=== PATIENT | female | born 1995 | race Caucasian/White ===

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

== ENCOUNTER 2017-05-31 19:30 | Emergency (ER) | payer OTHER ==
[~2017-05-31] VITALS: Ht 160 cm; Wt 88.8 kg
[~2017-05-31 19:30] MED LIST changes: +MOTRIN800 MG PO
[2017-05-31] MEDS ORDERED: FIORICET PO (22:12)
[2017-05-31 22:26] VITALS: BP 133/79
== END 2017-05-31 22:27 | disposition home or self-care (01) | DRG 103 ==
LOC: ED 19:30
DX: G43.909 Migraine, unspecified, not intractable, without status migrainosus (principal); I10 Essential (primary) hypertension

== ENCOUNTER 2017-06-27 10:35 | Emergency (ER) | payer SELFPAY ==
[~2017-06-27] VITALS: Ht 160 cm; Wt 84.0 kg
[~2017-06-27 10:35] MED LIST changes: +FIORICET PO
[2017-06-27 11:26] LABS: HEMATOCRIT 45.5 % (37.0-47.0); HEMOGLOBIN 15.4 g/dl (12.0-16.0); IMMATURE GRANULOCYTES 0.2 % (0.0-1.0); MEAN CORPUSCULAR HGB 29.1 pG CALC (26.0-32.0); MEAN CORPUSCULAR HGB CONC 33.8 g/L CALC (32.0-36.0); NEUT# 8.97 thou/uL (2.00-7.15); RED BLOOD COUNT 5.29 mill/uL (4.20-5.60)
[2017-06-27 11:33] LABS: ALBUMIN 4.6 g/dL (3.2-5.0); ALKALINE PHOSPHATASE 86 u/l (38-126); AMYLASE 35 u/l (30-110); ANION GAP 21 (6-22 (CALC)); BUN 19 mg/dL (8-21); BUN/CREATININE RATIO 23 (12-20 (CALC)); CARBON DIOXIDE 21 mmol/l (22-30); CHLORIDE 105 mmol/l (95-108); CREATININE 0.8 mg/dL (0.5-1.0); GFR > 60 ML/MIN (>=60 (CALC)); GFR FOR AFR.AMER. > 60 ML/MIN (>=60 (CALC)); LIPASE 67 u/l (23-300); POTASSIUM 4.3 mmol/l (3.5-5.1); SGOT/AST 21 u/l (14-36); SGPT/ALT 52 u/l (9-52); SODIUM 143 mmol/l (137-146); TOTAL PROTEIN 7.7 g/dL (6.3-8.2)
[2017-06-27] MEDS ORDERED: ZOFRAN4 MG/TAB PO (11:56)
[2017-06-27] MEDS ORDERED: BENTYL10 MG PO (11:56)
[2017-06-27 12:02] VITALS: BP 112/69
== END 2017-06-27 12:08 | disposition home or self-care (01) | DRG 392 ==
LOC: ED 10:35
PROVIDERS: Emergency Medicine
DX: R10.84 Generalized abdominal pain (principal); I10 Essential (primary) hypertension; R11.10 Vomiting, unspecified

== ENCOUNTER 2021-11-19 09:39 | Emergency (ER) | payer MEDICAID ==
[~2021-11-19] VITALS: Ht 160 cm; Wt 84.0 kg
[2021-11-19] VITALS (9 sets, daily range): BP systolic 128–151; BP diastolic 73–113
[~2021-11-19 09:39] MED LIST changes: +BENTYL10 MG PO; +ZOFRAN4 MG/TAB PO
[2021-11-19 10:48] LABS: URINE BILIRUBIN - DIPSTICK NEGATIVE (NEGATIVE); URINE BLOOD DIPSTICK NEGATIVE (NEGATIVE); URINE COLOR YELLOW; URINE GLUCOSE - DIPSTICK NEGATIVE (NEGATIVE); URINE KETONE NEGATIVE (NEGATIVE); URINE LEUK ESTERASE NEGATIVE (NEGATIVE); URINE PROTEIN - DIPSTICK 30 mg/dL (NEG-TRACE); URINE SPECIFIC GRAVITY 1.025; URINE UROBILINOGEN - DIPSTICK 0.2 E.U./dL (0.2)
[2021-11-19 10:51] LABS: URINE NITRITE - DIPSTICK NEGATIVE (Negative)
[2021-11-19 10:54] LABS: URINE RBC 0-2 RBC/hpf (0-5); URINE SQUAMOUS EPITHELIAL CELL FEW EPI/hpf (0-FEW)
[2021-11-19 10:55] LABS: URINE CALCIUM OXALATE CRYSTALS FEW lpf; URINE MUCUS MANY hpf (NONE-FEW)
[2021-11-19 10:56] LABS: HEMATOCRIT 42.2 % (37.0-47.0); HEMOGLOBIN 14.6 g/dl (12.0-16.0); IMMATURE GRANULOCYTES 0.2 % (0.0-5.0); MEAN CELL VOLUME 85.4 fL CALC (80.0-100.0); MEAN CORPUSCULAR HGB 29.6 pG CALC (26.0-32.0); MEAN CORPUSCULAR HGB CONC 34.6 g/dL CAL (32.0-36.0); NEUT# 10.34 thou/uL (2.00-7.15); RED BLOOD COUNT 4.94 mill/uL (4.20-5.60)
[2021-11-19 11:15] LABS: ALBUMIN 4.5 g/dL (3.2-5.0); ALKALINE PHOSPHATASE 82 u/l (38-126); BUN 11 mg/dL (7-17); BUN/CREATININE RATIO 13 (12-20 (CALC)); CHLORIDE 104 mmol/l (95-108); CREATININE 0.9 mg/dL (0.5-1.0); GFR FOR AFR.AMER. > 60 ML/MIN (>=60 (CALC)); GFR OTHER RACES > 60 ML/MIN (>=60 (CALC)); LIPASE 128 u/l (23-300); POTASSIUM 3.8 mmol/l (3.5-5.1); SGOT/AST 26 u/l (14-36); SODIUM 140 mmol/l (137-146); TOTAL PROTEIN 7.4 g/dL (6.3-8.2)
[2021-11-19 11:16] LABS: ANION GAP 13 (6-22 (CALC)); BILIRUBIN, TOTAL 0.4 mg/dL (0.0-1.4); CARBON DIOXIDE 27 mmol/l (22-30)
[2021-11-19] MEDS ORDERED: ONDANSETRON4 MG PO ×2 (13:14→13:19)
[2021-11-19] MEDS ORDERED: NAPROXEN500 MG PO ×2 (13:14→13:19)
== END 2021-11-19 13:38 | disposition home or self-care (01) ==
LOC: ED 09:39
PROVIDERS: Family Medicine
DX: R10.11 Right upper quadrant pain (principal)
CPT/HCPCS: Q9967